=== PATIENT | female | born 1960 | race Hispanic/Latino ===

== ENCOUNTER 2023-12-14 17:52 | Emergency (ER) | payer BC ==
[~2023-12-14] VITALS: Ht 160 cm; Wt 76.2 kg
[2023-12-14 18:06] LABS: BASOPHILS # (AUTO) 0.03 K/uL (0.00-0.20); BASOPHILS % (AUTO) 0.6 % (0.0-5.0); EOSINOPHILS # (AUTO) 0.06 K/uL (0.00-0.70); EOSINOPHILS % (AUTO) 1.1 % (0.0-8.0); HEMATOCRIT 43.9 % (36-48); IMMATURE GRANULOCYTE ABSOLUTE 0.02 K/uL (0-1); LYMPHOCYTES # (AUTO) 1.8 K/uL (1.0-4.8); LYMPHOCYTES % (AUTO) 34.8 % (21.0-51.0); MEAN CORPUSCULAR HEMOGLOBIN 29.1 pg (27.0-33.0); MEAN CORPUSCULAR HGB CONC 33.7 g/dL (32.0-36.0); MEAN CORPUSCULAR VOLUME 86.2 fL (79-99); MONOCYTES # (AUTO) 0.5 K/uL (0.1-1.0); MONOCYTES % (AUTO) 9.8 % (3.0-13.0); NEUTROPHILS # (AUTO) 2.8 K/uL (1.8-7.7); NEUTROPHILS % (AUTO) 53.3 % (40.0-77.0); PLATELET COUNT (AUTO) 252 K/uL (130-400); RED BLOOD CELL COUNT(AUTO) 5.09 MIL/uL (4.00-5.50); RED CELL DISTRIBUTION WIDTH 12.8 % (11.0-15.5); WHITE BLOOD COUNT (AUTO) 5.2 K/uL (4.8-10.8)
[2023-12-14 18:15] LABS: CREATININE 0.9 mg/dL (0.5-1.0); POTASSIUM 3.2 mmol/L (3.5-5.1)
[2023-12-14 18:25] LABS: BILIRUBIN,TOTAL 0.4 mg/dL (0.2-1.0); TOTAL PROTEIN, SERUM 7.5 g/dL (6.0-8.3)
[2023-12-14] MEDS: 0.9%NACL 1000ML 1,000 ML IV ONE ×2 (18:39→22:00)
[2023-12-14] MEDS: MAG/ALUM/SIMETH 30 ML UDCUP PO ONE (18:39)
[2023-12-14] MEDS: DICYCLOMINE HCL 10 MG/5 ML ML PO ONE (18:39)
[2023-12-14] MEDS: LIDOCAINE HCL 2% VISCOUS 15 ML UDCUP PO ONE (18:39)
[2023-12-14] MEDS: FAMOTIDINE 20MG VIAL IV ONE (18:39)
[2023-12-14] MEDS: POTASSIUM CHLORIDE 10MEQ/100ML 100 ML IV ONE (18:40)
[2023-12-14 19:41] VITALS: O2SAT 94
[2023-12-14] MEDS: AZITHROMYCIN 500MG+NS 250ML 250 ML IVPB SCH (20:00)
[2023-12-14] MEDS: ONDANSETRON 4MG INJ IVP ONE (20:00)
[2023-12-14] MEDS ORDERED: LOPE2CAP PO (20:05)
[2023-12-14] MEDS ORDERED: ONDA-104 PO (20:05)
[2023-12-14] MEDS ORDERED: AZIT500T4 PO (20:05)
[2023-12-14] MEDS ORDERED: ACID1TAB8 PO (20:05)
[2023-12-14] MEDS: LOPERAMIDE 1 MG/7.5 ML UDCUP PO SCH (21:22)
[2023-12-14] MEDS: HYOSCYAMINE SULFATE 0.125 MG TAB.SUBL SL ONE (21:45)
[2023-12-14 23:11] VITALS: BP 112/60; PULSE 68; RESP 16
== END 2023-12-14 23:22 | disposition home or self-care (01) ==
LOC: EDH 17:52
DX: K52.9 Noninfective gastroenteritis and colitis, unspecified (principal); A05.8 Other specified bacterial foodborne intoxications; E86.0 Dehydration; Z88.1 Allergy status to other antibiotic agents; Z88.8 Allergy status to other drugs, medicaments and biological substances; Z79.899 Other long term (current) drug therapy; Z91.041 Radiographic dye allergy status; Z90.710 Acquired absence of both cervix and uterus; Z98.890 Other specified postprocedural states
CPT/HCPCS: 36415; 80053; 83690; 84484; 85025; 93005; 96361; 96365; 96366; 96375; J0456; J2405; J3480; J3490; J7030